=== PATIENT | male | born 1970 | race Caucasian/White ===

== ENCOUNTER 2017-02-17 09:01 | Emergency (ER) | payer MEDICAID ==
[2017-02-17 10:10] LABS: Hematocrit 46 % (42-52); Hemoglobin 15.9 g/dl (14.0-18.0); Mean Corpuscular HGB Conc 34 g/dl (31-36); Mean Corpuscular Hemoglobin 33 pg (27-31); Mean Corpuscular Volume 97 fL (80-94); Mean Platelet Volume 9 um3 (7.4-10.4); Red Blood Count 4.78 10^6/ul (4.0-5.4); Red Cell Distribution Width 13 % (10.5-15); White Blood Count 8.8 10^3/ul (3.5-10.8)
[2017-02-17 10:29] LABS: ALT 20 U/L (7-52); AST 28 U/L (13-39); Albumin 4.5 g/dL (3.2-5.2); Alkaline Phosphatase 68 U/L (34-104); Anion Gap 4 mmol/L (2-11); BUN/Creatinine Ratio 12.5 (8-20); Blood Urea Nitrogen 12 mg/dL (6-24); CO2 Carbon Dioxide 27 mmol/L (22-32); Chloride 108 mmol/L (101-111); EGFR African American 108.9 (>60); EGFR Non-African American 84.7 (>60); Globulin 2.8 g/dL (2-4); Glucose 103 mg/dL (70-100); Magnesium 2.3 mg/dL (1.9-2.7); Potassium 4.3 mmol/L (3.5-5.0); Sodium 139 mmol/L (133-145); Total Protein 7.3 g/dL (6.4-8.9)
[2017-02-17 11:49] VITALS: BP 120/73
[2017-02-17 13:15] LABS: Alcohol < 10 mg/dL (<10)
--- NOTE | 2017-03-14 13:10 | ED ---
Darcy Angeles Edward, scribed for Mike Erickson MD on 02/17/17 at 0914 . Neurological HPI - HPI Summary HPI Summary: 46 y/o male BIBA c/o BROWN s/p 1x seizure earlier this morning. The BROWN is rated 2/ 10 in severity currently. Pt's seizure was witnessed by workers at the hotel that the pt is staying at. The pt's seizure lasted for around 1 minutes, characterized with convulsions. Pt bit his tongue during the seizure. PMHx seizures - last episode was several years ago. Pt states recent increased stress related to work. Pt had EtOH last night. - History of Current Complaint Chief Complaint: EDSeizure Stated Complaint: SEIZURE Hx Obtained From: Patient Onset/Duration: Started hours ago, Resolved Timing: Intermittent Episodes Lasting: - 1x Current Severity: Mild Number of Seizures: 1 Neurological Deficit Location: Generalized Pain Intensity: 2 Pain Scale Used: 0-10 Numeric Character: Other: - convulsions Syncope Context: Witnessed Frequency: Episodes x___ - 1 Aggravating: Nothing Alleviating: Nothing Associated Signs and Symptoms: Positive: Headache - Allergy/Home Medications Allergies/Adverse Reactions: Allergies Allergy/AdvReac Type Severity Reaction Status Date / Time No Known Allergies Allergy Verified 02/17/17 09:13 PMH/Surg Hx/FS Hx/Imm Hx Previously Healthy: No Opthamlomology History: Denies: Hx Legally Blind Neurological History: Reports: Hx Seizures Infectious Disease History: No Infectious Disease History: Denies: Traveled Outside the [place] in Last 30 Days - Family History Known Family History: Positive: Unknown - Social History Occupation: Employed Full-time Lives: With Family Alcohol Use: Occasionally Hx Substance Use: No Substance Use Type: Reports: None Review of Systems Negative: Fever, Chills Negative: Erythema Negative: Sore Throat Negative: Chest Pain Negative: Shortness Of Breath, Cough Negative: Abdominal Pain, Vomiting, Nausea Negative: dysuria, hematuria Negative: Myalgia, Edema Negative: Rash Neurological: Other - Positive: seizure (1x) Positive: Headache All Other Systems Reviewed And Are Negative: Yes Physical Exam - Summary Physical Exam Summary: Constitutional: Well-developed, Well-nourished, Alert. (-) Distressed Skin: Warm, Dry HENT: Normocephalic; Atraumatic. 3 mm tongue laceration. Eyes: Conjunctiva normal Neck: Musculoskeletal ROM normal neck. (-) JVD, (-) Stridor, (-) Tracheal deviation Cardio: Rhythm regular, rate normal, Heart sounds normal; Intact distal pulses; The pedal pulses are 2+ and symmetric. Radial pulses are 2+ and symmetric. (-) Murmur Pulmonary/Chest wall: Effort normal. (-) Respiratory distress, (-) Wheezes, (-) Rales Abd: Soft, (-) Tenderness, (-) Distension, (-) Guarding, (-) Rebound Musculoskeletal: (-) Edema Lymph: (-) Cervical adenopathy Neuro: Alert, Oriented x3 Psych: Mood and affect Normal Triage Information Reviewed: Yes Vital Signs On Initial Exam: Initial Vitals Temp Pulse Resp BP Pulse Ox 97.3 F 81 13 133/101 94 02/17/17 09:07 02/17/17 09:07 02/17/17 09:07 02/17/17 09:07 02/17/17 09:07 Vital Signs Reviewed: Yes Diagnostics - Vital Signs Vital Signs Temp Pulse Resp BP Pulse Ox 02/17/17 09:07 97.3 F 81 13 133/101 94 - Laboratory Result Diagrams: 02/17/17 09:51 02/17/17 09:51 Lab Statement: Any lab studies that have been ordered have been reviewed, and results considered in the medical decision making process. - EKG 1 EKG Interpretation: 09:49 - SR @ 75 BPM. NO STEMI Course/Dx - Course Assessment/Plan: 46 y/o male BIBA c/o BROWN s/p 1x seizure earlier this morning. The BROWN is rated 2/10 in severity currently. Pt's seizure was witnessed by workers at the hotel that the pt is staying at. The pt's seizure lasted for around 1 minutes, characterized with convulsions. Pt bit his tongue during the seizure. PMHx seizures - last episode was several years ago. Pt states recent increased stress related to work. Pt had EtOH last night. Test results without significant abnormalities. Pt will be d/c home with f/u with PCP. - Diagnoses Provider Diagnoses: Tongue laceration, Breakthrough seizure Discharge - Discharge Plan Condition: Stable Disposition: HOME Patient Education Materials: Laceration (ED), Nonepileptic Seizures (ED) Referrals: Cuauhtemoc Burgos DO [Primary Care Provider] - 5 Days (PLEASE F/U IN 3-5 DAYS) The documentation as recorded by the Darcy edwards Edward accurately reflects the service I personally performed and the decisions made by me, Mike Erickson MD.
== END 2017-02-17 12:07 | disposition home or self-care (01) ==
LOC: ED 09:01
DX: R56.9 Unspecified convulsions (principal); R51 Headache; S01.512A Laceration without foreign body of oral cavity, initial encounter; X58.XXXA Exposure to other specified factors, initial encounter; Y93.9 Activity, unspecified; Y92.9 Unspecified place or not applicable
CPT/HCPCS: 36415; 80053; 80320; 83605; 83735; 85025; 85610; 93005; 99282; G0480

== ENCOUNTER 2017-02-17 12:50 | Emergency (ER) | payer MEDICAID ==
[2017-02-17] MEDS ORDERED: Metoclopramide IV* 5 MG/ML 2 ML VIAL IV SLOW PU ONE (12:55)
[2017-02-17] MEDS ORDERED: levETIRAcetam IV* 1,000 MG in NS 0.9% 100 ML* 100 ML IVPB ONE (12:55)
--- NOTE | 2017-02-17 13:33 | RAD ---
indication: Neck pain after seizure. COMPARISON: None A CT scan of the brain and c-spine was performed without intravenous contrast enhancement. Contiguous axial sections were obtained from the lung apices through the vertex. BRAIN: The ventricles, cisterns and sulci are within normal limits. No significant focal abnormality or mass effect is seen. The kenney-white differentiation is adequately maintained. There is no evidence for intracranial hemorrhage. No significant bony abnormality is present. The mastoid air cells are appropriately aerated. There is moderate mucosal thickening of the bilateral maxillary sinuses. There is mild mucosal thickening of the anterior ethmoid air cells. C-SPINE: Mild degenerative changes of the cervical spine includes loss of intervertebral disc height most severely affecting C5/C6 where there is a mild degree of marginal osteophyte formation. On the coronal plane images there is uncovertebral hypertrophy at the same lower cervical spine levels. There is a slight degree of straightening of the normal cervical lordosis. Otherwise the vertebral bodies and facet joints are anatomically aligned. There is no acute fracture or dislocation identified. There is no hyperdense material in the cervical canal to indicate hemorrhage. The visualized musculature and soft tissues are normal. There is no gross lymphadenopathy visualized. The visualized portion of the lung apices are clear. IMPRESSION: 1. No acute intracranial abnormality. 2. Degenerative changes of the lower cervical spine as described above without acute fracture or dislocation. 3. Mild to moderate paranasal sinus mucosal disease.
[2017-02-17] MEDS ORDERED: Ketorolac INJ* 30 MG/ML 1 ML VIAL IV PUSH ONE (16:15)
[2017-02-17] MEDS ORDERED: PROCHLORPERAZINE INJ 5 MG/ML 2 ML VIAL IV ONE (16:16)
[2017-02-17 16:58] VITALS: BP 128/77
[2017-02-17] MEDS ORDERED: oxyCODONE/Acetamin 5/325 MG* TAB PO ONE (17:06)
--- NOTE | 2017-02-17 17:56 | ED ---
Darcy Angeles Edward, scribed for Mike Erickson MD on 02/17/17 at 1253 . Neurological HPI - HPI Summary HPI Summary: 46 y/o male BIBA c/o BROWN s/p sudden onset second seizure today while sitting passenger in a car. The BROWN is a severe, throbbing BROWN currently. Pt also bit his tongue again during this seizure. The symptoms are not aggravated or alleviated by anything. The seizure was witnessed by the route driver who said the pt's seizure "did not last for very long". Pt had a prior seizure earlier this morning and was seen in the ED for it. Pt was d/c from the ED a couple of hours ago. Pt had EtOH last night. - History of Current Complaint Chief Complaint: EDSeizure Stated Complaint: SEIZURE Hx Obtained From: Patient Onset/Duration: Sudden Onset Timing: Intermittent Episodes Lasting: - 2 Number of Seizures: 2 Neurological Deficit Location: Generalized Frequency: Episodes x___ - 2 Seizure Character: Generalized Aggravating: Nothing Alleviating: Nothing Associated Signs and Symptoms: Positive: Headache - and tongue laceration - Allergy/Home Medications Allergies/Adverse Reactions: Allergies Allergy/AdvReac Type Severity Reaction Status Date / Time No Known Allergies Allergy Verified 02/17/17 09:13 PMH/Surg Hx/FS Hx/Imm Hx Previously Healthy: No Opthamlomology History: Denies: Hx Legally Blind Neurological History: Reports: Hx Seizures - Surgical History Surgery Procedure, Year, and Place: spinal fusion (20 years ago), hernia repair (7 years ago) - Family History Known Family History: Negative: Cardiac Disease, Hypertension, Diabetes - Social History Alcohol Use: Occasionally Substance Use Type: Reports: None Smoking Status (MU): Current Every Day Smoker Review of Systems Negative: Fever, Chills Negative: Erythema Negative: Sore Throat Negative: Chest Pain Negative: Shortness Of Breath, Cough Negative: Abdominal Pain, Vomiting, Nausea Negative: dysuria, hematuria Negative: Myalgia, Edema Negative: Rash Neurological: Other - seizure 2x today Positive: Headache All Other Systems Reviewed And Are Negative: Yes Physical Exam - Summary Physical Exam Summary: Constitutional: Well-developed, Well-nourished, Alert. (-) Distressed Skin: Warm, Dry HENT: Normocephalic; Atraumatic Eyes: Conjunctiva normal Neck: Musculoskeletal ROM normal neck. (-) JVD, (-) Stridor, (-) Tracheal deviation Cardio: Rhythm regular, rate normal, Heart sounds normal; Intact distal pulses; The pedal pulses are 2+ and symmetric. Radial pulses are 2+ and symmetric. (-) Murmur Pulmonary/Chest wall: Effort normal. (-) Respiratory distress, (-) Wheezes, (-) Rales Abd: Soft, (-) Tenderness, (-) Distension, (-) Guarding, (-) Rebound Musculoskeletal: (-) Edema Lymph: (-) Cervical adenopathy Neuro: Alert, Oriented x3 Psych: Mood and affect Normal Triage Information Reviewed: Yes Vital Signs Reviewed: Yes Diagnostics - Laboratory Lab Statement: Any lab studies that have been ordered have been reviewed, and results considered in the medical decision making process. - CT CSPINE CT CT Interpretation: No Acute Changes - 1. No acute intracranial abnormality. 2. Degenerative changes of the lower cervical spine as described above without acute fracture or dislocation. 3. Mild to moderate paranasal sinus mucosal disease. ED PHYSICIAN REVIEWS AND AGREES CT Interpretation Completed By: Radiologist BRAIN CT CT Interpretation: No Acute Changes - 1. No acute intracranial abnormality. 2. Degenerative changes of the lower cervical spine as described above without acute fracture or dislocation. 3. Mild to moderate paranasal sinus mucosal disease. ED PHYSICIAN REVIEWS AND AGREES CT Interpretation Completed By: Radiologist Course/Dx - Course Assessment/Plan: 46 y/o male BIBA c/o BROWN s/p sudden onset second seizure today while sitting passenger in the car. The BROWN is a severe, throbbing BROWN currently. Pt also bit his tongue again during this seizure. The symptoms are not aggravated or alleviated by anything. The seizure was witnessed by the route driver who said the pt's seizure "did not last for very long". Pt had a prior seizure earlier this morning and was seen in the ED for it. Pt was d/c from the ED a couple of hours ago. Pt had EtOH last night. CSPINE and BRAIN CT SHOWS 1. No acute intracranial abnormality. 2. Degenerative changes of the lower cervical spine as described above without acute fracture or dislocation. 3. Mild to moderate paranasal sinus mucosal disease. ED PHYSICIAN REVIEWS AND AGREES. Spoke with Dr. Pina who sees no need to admit. Dr. Pina recommends we start the pt on Keppra, 500 mg BID. Pt will be d/c home with f/u with PCP. - Diagnoses Provider Diagnoses: Breakthrough seizure, Postictal headache - Physician Notifications Discussed Care Of Patient With: Kesha Pina Time Discussed With Above Provider: 16:20 Instructed by Provider To: Other - start keppra, no need to admit Discharge - Discharge Plan Condition: Stable Disposition: HOME Prescriptions: Levetiracetam [Keppra 500] 500 mg PO BID #60 tab Patient Education Materials: Acute Headache (ED), Recurrent Seizures in Adults (ED) Referrals: Cuauhtemoc Burgos DO [Primary Care Provider] - 4 Days (PLEASE F/U IN 3-5 DAYS) The documentation as recorded by the Darcy edwards Edward accurately reflects the service I personally performed and the decisions made by , Mike Erickson MD.
== END 2017-02-17 17:21 | disposition home or self-care (01) ==
LOC: ED 12:50
DX: R56.9 Unspecified convulsions (principal); R51 Headache; S01.512A Laceration without foreign body of oral cavity, initial encounter; X58.XXXA Exposure to other specified factors, initial encounter; Y93.9 Activity, unspecified; Y92.9 Unspecified place or not applicable; Z72.0 Tobacco use
CPT/HCPCS: 70450; 72125; 96374; 96375; 99283; A9270-GY; J0780; J1885; J2765